=== PATIENT | male | born 1945 | race Caucasian/White ===

== ENCOUNTER 2018-08-17 09:29 | Inpatient (IN) ==
[2018-08-17] MEDS ORDERED: DIAZEPAM 5 MG TABLET PO ONE (09:43)
[2018-08-17] MEDS ORDERED: POTASSIUM CHLORIDE RIDER 10 MEQ in PREMIX 1 EACH IV PRN (09:43)
[2018-08-17] MEDS ORDERED: MAGNESIUM SULF RIDER 2 GM in PREMIX 1 EACH IV PRN (09:43)
[2018-08-17] MEDS ORDERED: diphenhydrAMINE CAP 25 MG CAPSULE PO ONE (09:43)
[2018-08-17] MEDS ORDERED: ASPIRIN 325 MG TABLET PO ONE (09:43)
[2018-08-17] MEDS: SODIUM CHLORIDE 0.9% 1,000 ML IV SCH (10:15)
[2018-08-17 10:31] LABS: Basophils % 0.3 % (0.0-0.8); Eosinophils # 0.3 10*3/uL (0.0-0.87); Eosinophils % 2.8 % (0.00-10.9); Hemoglobin 14.3 GM/DL (14.0-18.0); Immature Granulocytes % 0.5 %; Immature Granulocytes Absolute 0.06 #; Lymphocytes # 2.6 10*3/uL (1.4-4.0); Lymphocytes % 22.9 % (21.2-54.2); Mean Corpuscular HGB Conc 33.3 GM/DL (32-36); Mean Corpuscular Volume 91.9 FL (87-102); Mean Platelet Volume 10.9 FL (9.6-12.0); Monocytes % 7.1 % (1.7-12.7); Neutrophils % 66.4 % (38.7-73.9); Platelet Count 186 T/CUMM (130-400); Red Blood Count 4.68 MC/CUMM (3.8-5.5); Red Cell Distribution Width 12.9 % (9.3-17.3); White Blood Count 11.5 T/CUMM (4-12)
[2018-08-17 10:40] LABS: PT Patient Result 11.2 SECS
[2018-08-17 10:57] LABS: Osmolality,Calculated 281.4 MOS/KG (273-304)
[2018-08-17] MEDS ORDERED: DIAZEPAM 5 MG TABLET ONE (12:09)
[2018-08-17] MEDS ORDERED: diphenhydrAMINE CAP 25 MG CAPSULE ONE (12:10)
[2018-08-17] MEDS ORDERED: NITROGLYCERIN DRIP 50 MG/250 ML BOTTLE IV ONE (12:39)
[2018-08-17] MEDS ORDERED: HEPARIN/NACL 0.9% 2 UNITS/ML 1,000 ML IV ONE (12:39)
[2018-08-17] MEDS ORDERED: LIDOCAINE 1% 20 ML VIAL ONE (12:39)
[2018-08-17] MEDS ORDERED: VERAPAMIL 5 MG/2 ML VIAL ONE (12:40)
[2018-08-17] MEDS ORDERED: HYDROmorphone 2 MG/1 ML VIAL ONE (12:42)
[2018-08-17] MEDS ORDERED: MIDAZOLAM 2 MG/2 ML VIAL ONE (12:42)
[2018-08-17] MEDS ORDERED: ENOXAPARIN 30 MG/0.3 ML SYRINGE ONE (12:58)
[2018-08-17] MEDS ORDERED: NITROGLYCERIN SL 0.4 MG TABLET SL PRN (13:37)
[2018-08-17] MEDS ORDERED: DEXTROSE 50% 25 GM/50 ML VIAL IV PRN (14:36)
[2018-08-17] MEDS ORDERED: GLUCAGON 1 MG VIAL IM PRN (14:36)
[2018-08-17] MEDS ORDERED: SODIUM CHLORIDE 0.9% 1,000 ML IV SCH (15:00)
[2018-08-17 15:17] LABS: ABG Base Excess 0.9 MMOL/L (-2.5-2.5); ABG HCO3 25.2 MMOL/L (20-26); ABG Oxygen Saturation 94.8 % (95-100); ABG PCO2 47.8 MM HG (35-48); ABG PH 7.362 (7.35-7.45); ABG PO2 80.1 MM HG (80-95); ABG TCO2 23.5 MMOL/L (23-27); Allen Test Positive; Pt O2 Delivery Device Room Air
[2018-08-17] MEDS: CHLORHEXIDINE 4% SOLN 118 ML BOTTLE TOP SCH ×2 (20:45→23:30)
[2018-08-17] MEDS ORDERED: ROSUVASTATIN 20 MG TABLET PO SCH (21:00)
[2018-08-17] MEDS: CHLORHEXIDINE 0.12% ORAL RINSE 60 ML BOTTLE SWISH/SPIT SCH (22:10)
[2018-08-17] MEDS: CIPROFLOXACIN 500 MG TABLET PO SCH (22:11)
[2018-08-17] MEDS: CARVEDILOL 25 MG TABLET PO SCH (22:12)
[2018-08-18] MEDS ORDERED: VANCOMYCIN 1,000 MG VIAL ONE (04:47)
[2018-08-18] MEDS ORDERED: PAPAVERINE 60 MG/2 ML VIAL ONE (04:47)
[2018-08-18 04:54] LABS: Basophils # 0.1 10*3/uL (0.0-0.2); Basophils % 0.5 % (0.0-0.8); Eosinophils # 0.4 10*3/uL (0.0-0.87); Eosinophils % 3.6 % (0.00-10.9); Hematocrit 42.2 VOL% (42.0-52.0); Hemoglobin 13.5 GM/DL (14.0-18.0); Immature Granulocytes % 0.6 %; Immature Granulocytes Absolute 0.07 #; Lymphocytes # 2.9 10*3/uL (1.4-4.0); Lymphocytes % 26.6 % (21.2-54.2); Mean Platelet Volume 11.1 FL (9.6-12.0); Monocytes % 7.8 % (1.7-12.7); Neutrophils % 60.9 % (38.7-73.9); Platelet Count 177 T/CUMM (130-400); Red Blood Count 4.49 MC/CUMM (3.8-5.5); Red Cell Distribution Width 12.8 % (9.3-17.3)
[2018-08-18 05:32] LABS: Calcium 8.8 MG/DL (8.5-10.1); Osmolality,Calculated 283.3 MOS/KG (273-304); Risk Ratio 5.24
[2018-08-18] MEDS ORDERED: DIAZEPAM 5 MG TABLET PO ONE (06:00)
[2018-08-18] MEDS ORDERED: FAMOTIDINE 20 MG TABLET PO ONE (06:00)
[2018-08-18] MEDS ORDERED: CEFUROXIME INJ 1,500 MG in SYRINGE 1 EACH IV ONE (06:00)
[2018-08-18] MEDS ORDERED: MIDAZOLAM 10 MG/2 ML VIAL ONE ×2 (06:10→06:11)
[2018-08-18] MEDS ORDERED: SUFentanil 250 MCG/5 ML AMP ONE (06:10)
[2018-08-18 07:31] LABS: ABG Base Excess 0.3 MMOL/L (-2.5-2.5); ABG HCO3 24.8 MMOL/L (20-26); ABG Oxygen Saturation 99.7 % (95-100); ABG PH 7.427 (7.35-7.45); ABG TCO2 21.3 MMOL/L (23-27); Glucose Heart Surgery 109 MG/DL (74-106); Hematocrit Heart Surgery 38.9 PERCENT (42-52); Hemoglobin Heart Surgery 12.6 G/DL (14.0-18.0); Ionized Calcium Arterial 1.13 MMOL/L (1.21-1.46); PH Patient Temp Arterial 7.427; Patient Temperature 37 CELCIUS; Potassium Heart/CVR 3.9 MMOL/L (3.5-5.1); Sodium Heart/CVR 139 MMOL/L (135-145)
[2018-08-18 07:54] LABS: Apearance,Urine CLEAR (Clear); Bacteria,Urine Occasional /HPF (Few); Bilirubin,Urine Negative (Negative); Blood, Urine Moderate mg/dL (Negative); Glucose,Urine (UA) Negative (Negative); Ketones,Urine Negative (Negative); Mucus,Urine Occasional /LPF (Occasional); Nitrite,Urine Negative (Negative); Protein,Urine Negative; RBC,Urine 135 /HPF (0-4); Squamous Epithelial Cell,Urine Occasional /HPF (0-10); Urine Color Yellow (Yellow); Urine Specific Gravity 1.014 (1.001-1.035); Urine Urobilinogen < 2.0 EU/DL (0.2-1.0); WBC,Urine 1 /HPF (0-6)
[2018-08-18] MEDS ORDERED: TAMSULOSIN 0.4 MG CAPSULE PO SCH (09:00)
[2018-08-18] MEDS ORDERED: ASPIRIN EC 81 MG TABLET PO SCH (09:00)
[2018-08-18] MEDS ORDERED: LOSARTAN 50 MG TABLET PO SCH (09:00)
[2018-08-18] MEDS ORDERED: CHOLECALCIFEROL 5,000 UNIT TABLET PO SCH (09:00)
[2018-08-18] MEDS ORDERED: NITROPRUSSIDE 50 MG/2 ML VIAL ONE (09:03)
[2018-08-18] MEDS ORDERED: POTASSIUM CHLORIDE RIDER 100 ML IV ONE (09:03)
[2018-08-18] MEDS ORDERED: PHENYLEPHRINE DRIP 40 MG/250 ML PREMIX IV ONE (09:31)
[2018-08-18 09:38] LABS: Hematocrit Heart Surgery 28.3 PERCENT (42-52); Hemoglobin Heart Surgery 9.1 G/DL (14.0-18.0); PCO2 Patient Temp Venous 34.9 MM HG; PH Patient Temp Venous 7.474; VBG Base Excess 2.2 MEQ/L (0-4); VBG HCO3 26.2 MEQ/L (24-28); VBG Oxygen Saturation 85.7 %; VBG PCO2 38.4 MMHG (41-51); VBG PH 7.444
[2018-08-18 10:09] LABS: PCO2 Patient Temp Venous 28.4 MM HG; PH Patient Temp Venous 7.544; PO2 Patient Temp Venous 39.3 MM HG; Potassium Heart/CVR 5.3 MMOL/L (3.5-5.1); VBG Base Excess 2.7 MEQ/L (0-4); VBG HCO3 26.6 MEQ/L (24-28); VBG Oxygen Saturation 88.5 %; VBG PCO2 32.9 MMHG (41-51); VBG PH 7.499; VBG PO2 48.4 MMHG (17-40)
[2018-08-18] MEDS ORDERED: MANNITOL 100 GM/500 ML BAG IV ONE (11:02)
[2018-08-18] MEDS ORDERED: ALBUMIN 5% 12.5 GM/250 ML VIAL IV ONE (11:03)
[2018-08-18] MEDS ORDERED: SODIUM BICARBONATE 50 MEQ/50 ML VIAL IV ONE (11:03)
[2018-08-18] MEDS ORDERED: MAGNESIUM SULFATE 5 GM/10 ML VIAL IV ONE (11:03)
[2018-08-18] MEDS ORDERED: methylPREDNISolone SOD SUC 1,000 MG/8 ML VIAL ONE (11:03)
[2018-08-18] MEDS ORDERED: DEXTROSE 5% KCL 20 MEQ 20 MEQ/1,000 ML BAG IV ONE (11:03)
[2018-08-18] MEDS ORDERED: HEPARIN 10,000 UNIT/10 ML VIAL ONE ×2 (11:03→11:04)
[2018-08-18] MEDS ORDERED: FUROSEMIDE 20 MG/2 ML VIAL ONE (11:03)
[2018-08-18] MEDS ORDERED: PROTAMINE SULFATE 250 MG/25 ML VIAL IV ONE (11:03)
[2018-08-18] MEDS ORDERED: ALBUMIN 25% 25 GM/100 ML VIAL IV ONE (11:03)
[2018-08-18 11:15] LABS: ABG HCO3 24.5 MMOL/L (20-26); ABG Oxygen Saturation 98.9 % (95-100); ABG PCO2 38.9 MM HG (35-48); ABG PH 7.408 (7.35-7.45); ABG TCO2 22.3 MMOL/L (23-27); Glucose Heart Surgery 185 MG/DL (74-106); Hematocrit Heart Surgery 30.8 PERCENT (42-52); PCO2 Patient Temp Arterial 38.9 MMHG; PH Patient Temp Arterial 7.408; Patient Temperature 37 CELCIUS; Sodium Heart/CVR 135 MMOL/L (135-145)
[2018-08-18] MEDS ORDERED: CALCIUM CHLORIDE 1,000 MG/10 ML VIAL IV ONE (12:01)
[2018-08-18] MEDS ORDERED: SEVOFLURANE 1 UNIT/15 MINUTE INH ONE (12:01)
[2018-08-18] MEDS ORDERED: PHENYLEPHRINE DRIP 20 MG/250 ML PREMIX IV ONE (12:01)
[2018-08-18] MEDS ORDERED: ePHEDrine 50 MG/ML AMP ONE (12:01)
[2018-08-18] MEDS ORDERED: ETOMIDATE 40 MG/20 ML VIAL IV ONE (12:02)
[2018-08-18] MEDS ORDERED: HEPARIN/NACL 0.9% 2 UNITS/ML 500 ML IV ONE (12:02)
[2018-08-18] MEDS ORDERED: PHENYLEPHRINE 1 MG/10 ML SYRINGE IV ONE (12:02)
[2018-08-18] MEDS ORDERED: VECURONIUM 10 MG VIAL IV ONE (12:02)
[2018-08-18] MEDS ORDERED: AMINOCAPROIC ACID 5,000 MG/20 ML VIAL ONE (12:02)
[2018-08-18] MEDS ORDERED: SODIUM CHLORIDE 0.9% 1,000 ML IV ONE (12:02)
[2018-08-18] MEDS ORDERED: LACTATED RINGERS 1,000 ML IV ONE (12:02)
[2018-08-18] MEDS ORDERED: MAGNESIUM SULF RIDER 2 GM in PREMIX 1 EACH IV PRN (12:07)
[2018-08-18] MEDS ORDERED: DEXTROSE 50% 25 GM/50 ML VIAL IV PRN ×2 (12:07)
[2018-08-18] MEDS ORDERED: MAGNESIUM SULF RIDER 4 GM in PREMIX 1 EACH IV PRN (12:07)
[2018-08-18] MEDS ORDERED: SODIUM CHLORIDE 0.45% 1,000 ML IV SCH ×2 (12:07)
[2018-08-18] MEDS ORDERED: INSULIN REGULAR DRIP 100 ML IV SCH (12:07)
[2018-08-18] MEDS ORDERED: ONDANSETRON 4 MG/2 ML VIAL IV PRN (12:07)
[2018-08-18] MEDS ORDERED: VECURONIUM 10 MG VIAL IV PRN ×2 (12:07)
[2018-08-18] MEDS ORDERED: PHENYLEPHRINE DRIP 40 MG/250 ML PREMIX IV PRN (12:07)
[2018-08-18] MEDS ORDERED: CALCIUM CHLORIDE 1,000 MG/10 ML SYRINGE IV PRN (12:07)
[2018-08-18] MEDS ORDERED: LACTATED RINGERS 250 ML IV PRN (12:07)
[2018-08-18] MEDS ORDERED: MORPHINE 4 MG/1 ML VIAL IV PRN (12:07)
[2018-08-18] MEDS ORDERED: INSULIN REGULAR 100 UNIT/ML IV PRN (12:07)
[2018-08-18] MEDS ORDERED: MIDAZOLAM 2 MG/2 ML VIAL IV PRN (12:07)
[2018-08-18] MEDS ORDERED: INSULIN REGULAR 100 UNIT/ML IV ONE (12:07)
[2018-08-18] MEDS ORDERED: NITROPRUSSIDE 100 MG in DEXTROSE 5% 250 ML IV PRN (12:07)
[2018-08-18] MEDS ORDERED: MIDAZOLAM 10 MG/2 ML VIAL IV PRN (12:07)
[2018-08-18] MEDS ORDERED: ACETAMINOPHEN 650 MG SUPP RECTAL PRN (12:07)
[2018-08-18 12:28] LABS: ABG Base Excess 0.1 MMOL/L (-2.5-2.5); ABG HCO3 24.5 MMOL/L (20-26); ABG Oxygen Saturation 98.4 % (95-100); ABG PCO2 36.5 MM HG (35-48); ABG PH 7.428 (7.35-7.45); ABG TCO2 21.6 MMOL/L (23-27); Glucose Heart Surgery 154 MG/DL (74-106); Hematocrit Heart Surgery 33.9 PERCENT (42-52); Potassium Heart/CVR 3.5 MMOL/L (3.5-5.1)
[2018-08-18 12:35] LABS: Basophils % 0.2 % (0.0-0.8); Eosinophils # 0.1 10*3/uL (0.0-0.87); Eosinophils % 0.8 % (0.00-10.9); Hematocrit 32.4 VOL% (42.0-52.0); Hemoglobin 10.6 GM/DL (14.0-18.0); Immature Granulocytes % 0.9 %; Immature Granulocytes Absolute 0.15 #; Lymphocytes # 1.4 10*3/uL (1.4-4.0); Lymphocytes % 8.1 % (21.2-54.2); Mean Corpuscular HGB Conc 32.7 GM/DL (32-36); Mean Corpuscular Volume 91.3 FL (87-102); Mean Platelet Volume 10.9 FL (9.6-12.0); Monocytes % 5.8 % (1.7-12.7); Neutrophils % 84.2 % (38.7-73.9); Platelet Count 137 T/CUMM (130-400); Red Blood Count 3.55 MC/CUMM (3.8-5.5); Red Cell Distribution Width 12.4 % (9.3-17.3)
[2018-08-18] MEDS: POTASSIUM CHLORIDE RIDER 20 MEQ in PREMIX 1 EACH IV PRN ×2 (12:39→15:50)
[2018-08-18 12:43] LABS: INR 1.2; PT Patient Result 13.3 SECS; Partial Thromboplastin Time 28.9 SECS (0-40)
[2018-08-18] MEDS: LACTATED RINGERS 1,000 ML IV PRN ×4 (12:57→19:07)
[2018-08-18 13:08] LABS: CKMB % 6.8 %
[2018-08-18 13:11] LABS: Troponin I 4.2 NG/ML (0.00-0.045)
[2018-08-18 13:13] LABS: Albumin 3.2 G/DL (3.4-5.0); Bilirubin,Total 1.2 MG/DL (0.2-1.0); Calcium 8.7 MG/DL (8.5-10.1); Osmolality,Calculated 285.3 MOS/KG (273-304); Total Protein 5.6 G/DL (6.4-8.3)
[2018-08-18] MEDS: KETOROLAC 15 MG/1 ML VIAL IV SCH ×2 (13:23→19:05)
[2018-08-18] MEDS: POTASSIUM CHLORIDE RIDER 10 MEQ in PREMIX 1 EACH IV PRN ×2 (13:28→16:31)
[2018-08-18 14:25] LABS: ABG Base Excess 1.1 MMOL/L (-2.5-2.5); ABG HCO3 25.4 MMOL/L (20-26); ABG PCO2 34.9 MM HG (35-48); ABG PH 7.456 (7.35-7.45); ABG TCO2 21.9 MMOL/L (23-27); Glucose Heart Surgery 160 MG/DL (74-106); Hematocrit Heart Surgery 34.6 PERCENT (42-52); Hemoglobin Heart Surgery 11.2 G/DL (14.0-18.0); Potassium Heart/CVR 4.1 MMOL/L (3.5-5.1)
[2018-08-18] MEDS: ALBUMIN 5% 12.5 GM in PREMIX 1 EACH IV PRN ×4 (14:57→22:40)
[2018-08-18 15:38] LABS: ABG Base Excess 0.9 MMOL/L (-2.5-2.5); ABG HCO3 25.2 MMOL/L (20-26); ABG Oxygen Saturation 98.4 % (95-100); ABG PCO2 41.3 MM HG (35-48); ABG PH 7.402 (7.35-7.45); ABG TCO2 23.1 MMOL/L (23-27); Glucose Heart Surgery 154 MG/DL (74-106); Hematocrit Heart Surgery 34.3 PERCENT (42-52); Hemoglobin Heart Surgery 11.1 G/DL (14.0-18.0); Potassium Heart/CVR 3.6 MMOL/L (3.5-5.1)
[2018-08-18] MEDS: CARVEDILOL 25 MG TABLET PO SCH (19:24)
[2018-08-18] MEDS: CHLORHEXIDINE 0.12% ORAL RINSE 60 ML BOTTLE SWISH/SPIT SCH (19:24)
[2018-08-18] MEDS: CIPROFLOXACIN 500 MG TABLET PO SCH (19:24)
[2018-08-18] MEDS: CHLORHEXIDINE 4% SOLN 118 ML BOTTLE TOP SCH (19:24)
[2018-08-18] MEDS: SODIUM CHLORIDE 0.9% 1,000 ML IV SCH (19:25)
[2018-08-18] MEDS: CEFUROXIME INJ 1,500 MG in SYRINGE 1 EACH IV SCH (19:54)
[2018-08-18 20:27] LABS: ABG Base Excess 0.3 MMOL/L (-2.5-2.5); ABG HCO3 24.7 MMOL/L (20-26); ABG PH 7.453 (7.35-7.45); ABG TCO2 21.6 MMOL/L (23-27); Glucose Heart Surgery 144 MG/DL (74-106); Hematocrit Heart Surgery 30.8 PERCENT (42-52); Potassium Heart/CVR 4.1 MMOL/L (3.5-5.1)
[2018-08-18] MEDS ORDERED: CHLORHEXIDINE 0.12% ORAL RINSE 60 ML BOTTLE SWISH/SPIT SCH (21:00)
[2018-08-18 21:32] LABS: ABG Base Excess 0.9 MMOL/L (-2.5-2.5); ABG HCO3 25.3 MMOL/L (20-26); ABG PCO2 31.2 MM HG (35-48); ABG PH 7.489 (7.35-7.45); ABG TCO2 21.5 MMOL/L (23-27); Glucose Heart Surgery 153 MG/DL (74-106); Potassium Heart/CVR 4.1 MMOL/L (3.5-5.1)
[2018-08-18 22:20] LABS: CKMB % 5.9 %
[2018-08-18 22:22] LABS: Troponin I 4.81 NG/ML (0.00-0.045)
[2018-08-18] MEDS: MORPHINE 10 MG/1 ML VIAL IV PRN (22:45)
[2018-08-18 22:49] LABS: ABG Base Excess -0.3 MMOL/L (-2.5-2.5); ABG HCO3 24.2 MMOL/L (20-26); ABG PCO2 39.9 MM HG (35-48); ABG PH 7.396 (7.35-7.45); ABG TCO2 22.4 MMOL/L (23-27); Glucose Heart Surgery 161 MG/DL (74-106); Hematocrit Heart Surgery 29.9 PERCENT (42-52); Hemoglobin Heart Surgery 9.7 G/DL (14.0-18.0); Potassium Heart/CVR 3.9 MMOL/L (3.5-5.1)
[2018-08-19] MEDS: INSULIN REGULAR 100 UNIT/ML SUBCUT SCH ×3 (00:28→11:35)
[2018-08-19] MEDS ORDERED: FUROSEMIDE 40 MG/4 ML VIAL IV ONE (00:30)
[2018-08-19] MEDS: KETOROLAC 15 MG/1 ML VIAL IV SCH ×5 (01:18→20:56)
[2018-08-19] MEDS: MORPHINE 10 MG/1 ML VIAL IV PRN ×3 (01:20→06:48)
[2018-08-19] MEDS: ALBUMIN 5% 12.5 GM in PREMIX 1 EACH IV PRN (01:20)
[2018-08-19] MEDS: POTASSIUM CHLORIDE RIDER 20 MEQ in PREMIX 1 EACH IV PRN (01:21)
[2018-08-19] MEDS: POTASSIUM CHLORIDE RIDER 10 MEQ in PREMIX 1 EACH IV PRN (02:02)
[2018-08-19] MEDS: LACTATED RINGERS 1,000 ML IV PRN (04:00)
[2018-08-19 04:45] LABS: Basophils % 0.2 % (0.0-0.8); Hematocrit 25.7 VOL% (42.0-52.0); Hemoglobin 8.7 GM/DL (14.0-18.0); Immature Granulocytes % 0.6 %; Lymphocytes # 1.1 10*3/uL (1.4-4.0); Mean Corpuscular HGB Conc 33.9 GM/DL (32-36); Mean Corpuscular Volume 90.5 FL (87-102); Mean Platelet Volume 11.6 FL (9.6-12.0); Monocytes % 2.7 % (1.7-12.7); Neutrophils % 90.5 % (38.7-73.9); Red Blood Count 2.84 MC/CUMM (3.8-5.5); Red Cell Distribution Width 12.9 % (9.3-17.3); White Blood Count 17.6 T/CUMM (4-12)
[2018-08-19 04:46] LABS: ABG Base Excess 1.1 MMOL/L (-2.5-2.5); ABG HCO3 25.4 MMOL/L (20-26); ABG Oxygen Saturation 97.7 % (95-100); ABG PCO2 42.2 MM HG (35-48); ABG PH 7.398 (7.35-7.45); ABG TCO2 23.9 MMOL/L (23-27); Glucose Heart Surgery 161 MG/DL (74-106); Hematocrit Heart Surgery 28.6 PERCENT (42-52); Hemoglobin Heart Surgery 9.2 G/DL (14.0-18.0); Potassium Heart/CVR 4.1 MMOL/L (3.5-5.1)
[2018-08-19 04:49] LABS: Platelet Count 97 T/CUMM (130-400)
[2018-08-19 05:04] LABS: Albumin 3.8 G/DL (3.4-5.0); Bilirubin,Direct 0.26 MG/DL (0.0-0.20); Bilirubin,Total 1.5 MG/DL (0.2-1.0); Calcium 8.2 MG/DL (8.5-10.1); Osmolality,Calculated 288.1 MOS/KG (273-304); Total Protein 5.8 G/DL (6.4-8.3)
[2018-08-19 05:11] LABS: CKMB % 6.2 %
[2018-08-19 05:20] LABS: Troponin I 6.09 NG/ML (0.00-0.045)
[2018-08-19] MEDS ORDERED: ACETAMINOPHEN 325 MG TABLET PO PRN (08:42)
[2018-08-19] MEDS ORDERED: DEXTROSE 50% 25 GM/50 ML VIAL IV PRN ×2 (08:42)
[2018-08-19] MEDS ORDERED: ALUMINUM/MAGNES/SIMETH MAX STR 30 ML UDCUP PO PRN (08:42)
[2018-08-19] MEDS ORDERED: GLUCAGON 1 MG VIAL IM PRN ×2 (08:42)
[2018-08-19] MEDS ORDERED: POTASSIUM CHLORIDE 20 MEQ TABLET PO PRN (08:42)
[2018-08-19] MEDS ORDERED: ONDANSETRON 4 MG/2 ML VIAL IV PRN (08:42)
[2018-08-19] MEDS ORDERED: MAGNESIUM SULF RIDER 4 GM in PREMIX 1 EACH IV PRN (08:42)
[2018-08-19] MEDS ORDERED: MAGNESIUM SULF RIDER 2 GM in PREMIX 1 EACH IV PRN (08:42)
[2018-08-19] MEDS ORDERED: ZALEPLON 5 MG CAPSULE PO PRN (08:42)
[2018-08-19] MEDS ORDERED: CEFUROXIME INJ 1,500 MG in SYRINGE 1 EACH IV SCH (09:00)
[2018-08-19] MEDS: CEFUROXIME INJ 1,500 MG in SYRINGE 1 EACH IV SCH ×2 (09:04→09:19)
[2018-08-19] MEDS: FERROUS SULFATE 325 MG TABLET PO SCH (09:13)
[2018-08-19] MEDS: CARVEDILOL 25 MG TABLET PO SCH ×2 (09:14→20:55)
[2018-08-19] MEDS: ASPIRIN EC 81 MG TABLET PO SCH (09:14)
[2018-08-19] MEDS: CHOLECALCIFEROL 5,000 UNIT TABLET PO SCH (09:14)
[2018-08-19] MEDS: PANTOPRAZOLE 40 MG TABLET PO SCH (09:15)
[2018-08-19] MEDS: TAMSULOSIN 0.4 MG CAPSULE PO SCH (09:15)
[2018-08-19] MEDS: DOCUSATE SODIUM 100 MG CAPSULE PO SCH (09:15)
[2018-08-19] MEDS: LOSARTAN 50 MG TABLET PO SCH (09:16)
[2018-08-19] MEDS: CIPROFLOXACIN 500 MG TABLET PO SCH ×2 (09:16→20:55)
[2018-08-19] MEDS: oxyCODONE/ACETAMINOPHEN 5-325 MG TABLET PO PRN (09:16)
[2018-08-19] MEDS: SODIUM CHLOR 0.45% KCL 20 MEQ 20 MEQ/1,000 ML BAG IV SCH (09:18)
[2018-08-19] MEDS: CHLORHEXIDINE 0.12% ORAL RINSE 60 ML BOTTLE SWISH/SPIT SCH ×2 (09:18→21:02)
[2018-08-19] MEDS: ROSUVASTATIN 20 MG TABLET PO SCH (20:55)
[2018-08-19] MEDS: MORPHINE 4 MG/1 ML VIAL IV PRN ×2 (20:56→23:24)
[2018-08-20] MEDS: KETOROLAC 15 MG/1 ML VIAL IV SCH ×4 (02:29→20:23)
[2018-08-20 05:00] LABS: Basophils % 0.2 % (0.0-0.8); Hematocrit 25.6 VOL% (42.0-52.0); Hemoglobin 8.2 GM/DL (14.0-18.0); Immature Granulocytes % 0.8 %; Immature Granulocytes Absolute 0.16 #; Lymphocytes # 1.1 10*3/uL (1.4-4.0); Lymphocytes % 5.9 % (21.2-54.2); Mean Corpuscular Volume 92.4 FL (87-102); Mean Platelet Volume 12.3 FL (9.6-12.0); Neutrophils % 87.1 % (38.7-73.9); Platelet Count 102 T/CUMM (130-400); Red Blood Count 2.77 MC/CUMM (3.8-5.5); Red Cell Distribution Width 13.6 % (9.3-17.3)
[2018-08-20 05:20] LABS: Albumin 3.1 G/DL (3.4-5.0); Bilirubin,Direct 0.11 MG/DL (0.0-0.20); Bilirubin,Indirect 0.4 MG/DL (0.0-1.0); Bilirubin,Total 0.5 MG/DL (0.2-1.0); CKMB % 3.2 %; Calcium 7.9 MG/DL (8.5-10.1); Osmolality,Calculated 290.4 MOS/KG (273-304); Total Protein 5.3 G/DL (6.4-8.3); Troponin I 5.75 NG/ML (0.00-0.045)
[2018-08-20] MEDS ORDERED: FUROSEMIDE 40 MG/4 ML VIAL IV ONE (06:00)
[2018-08-20] MEDS: CEFUROXIME INJ 1,500 MG in SYRINGE 1 EACH IV SCH (09:58)
[2018-08-20] MEDS: DOCUSATE SODIUM 100 MG CAPSULE PO SCH (09:58)
[2018-08-20] MEDS: CIPROFLOXACIN 500 MG TABLET PO SCH ×2 (09:59→20:23)
[2018-08-20] MEDS: CHOLECALCIFEROL 5,000 UNIT TABLET PO SCH (09:59)
[2018-08-20] MEDS: PANTOPRAZOLE 40 MG TABLET PO SCH (09:59)
[2018-08-20] MEDS: CARVEDILOL 25 MG TABLET PO SCH ×2 (09:59→20:25)
[2018-08-20] MEDS: FERROUS SULFATE 325 MG TABLET PO SCH (09:59)
[2018-08-20] MEDS: ASPIRIN EC 81 MG TABLET PO SCH (09:59)
[2018-08-20] MEDS: LOSARTAN 50 MG TABLET PO SCH (10:00)
[2018-08-20] MEDS: CHLORHEXIDINE 0.12% ORAL RINSE 60 ML BOTTLE SWISH/SPIT SCH ×2 (10:00→20:25)
[2018-08-20] MEDS: MAGNESIUM HYDROXIDE SUSP 30 ML UDCUP PO PRN (10:00)
[2018-08-20] MEDS: TAMSULOSIN 0.4 MG CAPSULE PO SCH (10:00)
[2018-08-20] MEDS ORDERED: POTASSIUM CHLORIDE 20 MEQ TABLET PO PRN (10:30)
[2018-08-20] MEDS: SODIUM CHLOR 0.45% KCL 20 MEQ 20 MEQ/1,000 ML BAG IV SCH (10:31)
[2018-08-20] MEDS: ROSUVASTATIN 20 MG TABLET PO SCH (20:23)
[2018-08-20] MEDS: MORPHINE 4 MG/1 ML VIAL IV PRN (23:44)
[2018-08-21] MEDS: MORPHINE 4 MG/1 ML VIAL IV PRN (01:49)
[2018-08-21] MEDS: KETOROLAC 15 MG/1 ML VIAL IV SCH (01:49)
[2018-08-21 04:58] LABS: Eosinophils % 0.1 % (0.00-10.9); Hematocrit 25.1 VOL% (42.0-52.0); Hemoglobin 8.2 GM/DL (14.0-18.0); Immature Granulocytes % 0.7 %; Immature Granulocytes Absolute 0.11 #; Lymphocytes # 1.6 10*3/uL (1.4-4.0); Lymphocytes % 10.2 % (21.2-54.2); Mean Corpuscular HGB Conc 32.7 GM/DL (32-36); Mean Platelet Volume 12.5 FL (9.6-12.0); Monocytes % 8.2 % (1.7-12.7); Neutrophils % 80.8 % (38.7-73.9); Platelet Count 107 T/CUMM (130-400); White Blood Count 15.9 T/CUMM (4-12)
[2018-08-21 05:29] LABS: Albumin 3.1 G/DL (3.4-5.0); Bilirubin,Direct 0.14 MG/DL (0.0-0.20); Bilirubin,Indirect 0.3 MG/DL (0.0-1.0); Bilirubin,Total 0.4 MG/DL (0.2-1.0); CKMB % 2.1 %; Calcium 7.8 MG/DL (8.5-10.1); Osmolality,Calculated 296.1 MOS/KG (273-304); Total Protein 5.4 G/DL (6.4-8.3)
[2018-08-21 05:37] LABS: Troponin I 4.92 NG/ML (0.00-0.045)
[2018-08-21] MEDS: CIPROFLOXACIN 500 MG TABLET PO SCH ×2 (08:52→21:31)
[2018-08-21] MEDS: FERROUS SULFATE 325 MG TABLET PO SCH (08:52)
[2018-08-21] MEDS: ASPIRIN EC 81 MG TABLET PO SCH (08:52)
[2018-08-21] MEDS: CARVEDILOL 25 MG TABLET PO SCH ×4 (08:52→21:40)
[2018-08-21] MEDS: TAMSULOSIN 0.4 MG CAPSULE PO SCH (08:52)
[2018-08-21] MEDS: PANTOPRAZOLE 40 MG TABLET PO SCH (08:52)
[2018-08-21] MEDS: LOSARTAN 50 MG TABLET PO SCH ×2 (08:52→08:57)
[2018-08-21] MEDS: CHOLECALCIFEROL 5,000 UNIT TABLET PO SCH (08:52)
[2018-08-21] MEDS: DOCUSATE SODIUM 100 MG CAPSULE PO SCH (08:52)
[2018-08-21] MEDS: oxyCODONE/ACETAMINOPHEN 5-325 MG TABLET PO PRN ×2 (08:54→21:30)
[2018-08-21] MEDS: CHLORHEXIDINE 0.12% ORAL RINSE 60 ML BOTTLE SWISH/SPIT SCH ×2 (09:03→22:26)
[2018-08-21] MEDS: ROSUVASTATIN 20 MG TABLET PO SCH (21:29)
[2018-08-21] MEDS: ASCORBIC ACID 500 MG TABLET PO SCH (21:30)
[2018-08-22] MEDS: oxyCODONE/ACETAMINOPHEN 5-325 MG TABLET PO PRN ×2 (06:40→22:01)
[2018-08-22] MEDS: ASPIRIN EC 81 MG TABLET PO SCH (08:53)
[2018-08-22] MEDS: CIPROFLOXACIN 500 MG TABLET PO SCH ×2 (08:53→22:00)
[2018-08-22] MEDS: CHOLECALCIFEROL 5,000 UNIT TABLET PO SCH (08:53)
[2018-08-22] MEDS: TAMSULOSIN 0.4 MG CAPSULE PO SCH (08:53)
[2018-08-22] MEDS: DOCUSATE SODIUM 100 MG CAPSULE PO SCH (08:53)
[2018-08-22] MEDS: PANTOPRAZOLE 40 MG TABLET PO SCH (08:53)
[2018-08-22] MEDS: ASCORBIC ACID 500 MG TABLET PO SCH ×2 (08:54→22:01)
[2018-08-22] MEDS: CARVEDILOL 25 MG TABLET PO SCH ×2 (08:54→22:00)
[2018-08-22] MEDS: MAGNESIUM HYDROXIDE SUSP 30 ML UDCUP PO PRN (08:54)
[2018-08-22] MEDS: FERROUS SULFATE 325 MG TABLET PO SCH (08:54)
[2018-08-22] MEDS: LOSARTAN 50 MG TABLET PO SCH (09:46)
[2018-08-22] MEDS: CHLORHEXIDINE 0.12% ORAL RINSE 60 ML BOTTLE SWISH/SPIT SCH ×2 (09:47→22:00)
[2018-08-22 11:01] LABS: Osmolality,Calculated 290.4 MOS/KG (273-304)
[2018-08-22] MEDS: POLYETHYLENE GLYCOL POWDER 17 GM PACK PO SCH (14:11)
[2018-08-22] MEDS: ROSUVASTATIN 20 MG TABLET PO SCH (22:00)
[2018-08-23 06:01] LABS: Basophils % 0.1 % (0.0-0.8); Eosinophils # 0.6 10*3/uL (0.0-0.87); Eosinophils % 4.3 % (0.00-10.9); Hematocrit 28.5 VOL% (42.0-52.0); Hemoglobin 9.2 GM/DL (14.0-18.0); Immature Granulocytes % 0.5 %; Immature Granulocytes Absolute 0.07 #; Lymphocytes # 1.8 10*3/uL (1.4-4.0); Lymphocytes % 13.4 % (21.2-54.2); Mean Corpuscular HGB Conc 32.3 GM/DL (32-36); Mean Corpuscular Volume 93.1 FL (87-102); Mean Platelet Volume 11.7 FL (9.6-12.0); Monocytes % 9.5 % (1.7-12.7); Neutrophils % 72.2 % (38.7-73.9); Platelet Count 145 T/CUMM (130-400); Red Blood Count 3.06 MC/CUMM (3.8-5.5); Red Cell Distribution Width 13.5 % (9.3-17.3); White Blood Count 13.7 T/CUMM (4-12)
[2018-08-23 06:26] LABS: Alanine Aminotransferase 25 U/L (16-61); Albumin 2.9 G/DL (3.4-5.0); Alkaline Phosphatase 68 U/L (45-117); Aspartate Amino Transferase 22 U/L (0-37); Bilirubin,Indirect 0.6 MG/DL (0.0-1.0); Blood Urea Nitrogen 35 MG/DL (7-18); Calcium 8.1 MG/DL (8.5-10.1); Glucose 80 MG/DL (74-106); Osmolality,Calculated 285.4 MOS/KG (273-304); Total Protein 6.1 G/DL (6.4-8.3)
[2018-08-23] MEDS: POLYETHYLENE GLYCOL POWDER 17 GM PACK PO SCH (08:41)
[2018-08-23] MEDS: ASPIRIN EC 81 MG TABLET PO SCH (08:42)
[2018-08-23] MEDS: ASCORBIC ACID 500 MG TABLET PO SCH ×2 (08:42→20:48)
[2018-08-23] MEDS: LOSARTAN 50 MG TABLET PO SCH (08:42)
[2018-08-23] MEDS: CHOLECALCIFEROL 5,000 UNIT TABLET PO SCH (08:42)
[2018-08-23] MEDS: DOCUSATE SODIUM 100 MG CAPSULE PO SCH (08:42)
[2018-08-23] MEDS: CHLORHEXIDINE 0.12% ORAL RINSE 60 ML BOTTLE SWISH/SPIT SCH ×2 (08:43→20:50)
[2018-08-23] MEDS: TAMSULOSIN 0.4 MG CAPSULE PO SCH (08:43)
[2018-08-23] MEDS: PANTOPRAZOLE 40 MG TABLET PO SCH (08:43)
[2018-08-23] MEDS: CARVEDILOL 25 MG TABLET PO SCH ×2 (08:43→20:48)
[2018-08-23] MEDS: CIPROFLOXACIN 500 MG TABLET PO SCH ×2 (08:43→20:48)
[2018-08-23] MEDS: FERROUS SULFATE 325 MG TABLET PO SCH (08:43)
[2018-08-23] MEDS ORDERED: LACTULOSE 20 GM/30 ML UDCUP PO PRN (13:50)
[2018-08-23] MEDS: LACTULOSE 20 GM/30 ML UDCUP PO SCH ×2 (14:35→20:48)
[2018-08-23] MEDS: ROSUVASTATIN 20 MG TABLET PO SCH (20:48)
[2018-08-24] MEDS: LACTULOSE 20 GM/30 ML UDCUP PO SCH ×2 (02:54→08:52)
[2018-08-24 05:31] LABS: Basophils % 0.1 % (0.0-0.8); Eosinophils # 0.6 10*3/uL (0.0-0.87); Eosinophils % 4.8 % (0.00-10.9); Hematocrit 27.9 VOL% (42.0-52.0); Immature Granulocytes % 0.7 %; Immature Granulocytes Absolute 0.09 #; Lymphocytes # 1.9 10*3/uL (1.4-4.0); Lymphocytes % 14.4 % (21.2-54.2); Mean Corpuscular HGB Conc 32.3 GM/DL (32-36); Mean Corpuscular Volume 92.4 FL (87-102); Mean Platelet Volume 11.8 FL (9.6-12.0); Monocytes % 11.2 % (1.7-12.7); Neutrophils % 68.8 % (38.7-73.9); Platelet Count 167 T/CUMM (130-400); Red Blood Count 3.02 MC/CUMM (3.8-5.5); Red Cell Distribution Width 13.3 % (9.3-17.3); White Blood Count 13.2 T/CUMM (4-12)
[2018-08-24 06:10] LABS: Alanine Aminotransferase 38 U/L (16-61); Albumin 2.8 G/DL (3.4-5.0); Alkaline Phosphatase 78 U/L (45-117); Aspartate Amino Transferase 35 U/L (0-37); Bilirubin,Indirect 0.9 MG/DL (0.0-1.0); Blood Urea Nitrogen 33 MG/DL (7-18); Calcium 8.7 MG/DL (8.5-10.1); Glucose 86 MG/DL (74-106); Osmolality,Calculated 282.5 MOS/KG (273-304); Total Protein 5.9 G/DL (6.4-8.3)
[2018-08-24 07:46] VITALS: BP 115/68
[2018-08-24] MEDS: ASPIRIN EC 81 MG TABLET PO SCH (08:52)
[2018-08-24] MEDS: TAMSULOSIN 0.4 MG CAPSULE PO SCH (08:52)
[2018-08-24] MEDS: CIPROFLOXACIN 500 MG TABLET PO SCH (08:52)
[2018-08-24] MEDS: PANTOPRAZOLE 40 MG TABLET PO SCH (08:52)
[2018-08-24] MEDS: DOCUSATE SODIUM 100 MG CAPSULE PO SCH (08:52)
[2018-08-24] MEDS: FERROUS SULFATE 325 MG TABLET PO SCH (08:53)
[2018-08-24] MEDS: CHLORHEXIDINE 0.12% ORAL RINSE 60 ML BOTTLE SWISH/SPIT SCH (08:53)
[2018-08-24] MEDS: POLYETHYLENE GLYCOL POWDER 17 GM PACK PO SCH (08:53)
[2018-08-24] MEDS: ASCORBIC ACID 500 MG TABLET PO SCH (08:53)
[2018-08-24] MEDS: CHOLECALCIFEROL 5,000 UNIT TABLET PO SCH (08:53)
[2018-08-24] MEDS: CARVEDILOL 25 MG TABLET PO SCH (08:53)
[2018-08-24] MEDS: LOSARTAN 50 MG TABLET PO SCH (08:53)
== END 2018-08-24 11:46 | disposition home health service (06) | DRG 234 ==
LOC: N.CL 09:29 → N.TELEN 14:02 → N.CVR 08-18 07:06 → N.ICU 08-19 11:37 → N.TELES 08-19 14:03
PROVIDERS: ADMIT Internal Medicine Cardiovascular Disease; ATTEND Internal Medicine Cardiovascular Disease